=== PATIENT | female | born 1990 | race African-American/Black ===

== ENCOUNTER 2016-02-22 15:17 | Emergency (ER) | payer OTHER ==
[~2016-02-22] VITALS: Ht 149.9 cm; Wt 97.1 kg
[2016-02-22 18:47] VITALS: BP 110/68
[2016-02-22] MEDS ORDERED: KETOROLAC TROMETH 60MG/2ML VIAL IM ONE (19:00)
== END 2016-02-22 19:31 | disposition home or self-care (01) ==
LOC: ER 15:35
DX: G43.909 Migraine, unspecified, not intractable, without status migrainosus (principal); M19.90 Unspecified osteoarthritis, unspecified site; F41.9 Anxiety disorder, unspecified
CPT/HCPCS: 93005; 96372; 99283; J1885